=== PATIENT | male | born 1950 | race Caucasian/White ===

== ENCOUNTER 2017-02-05 13:34 | Emergency (ER) | payer MEDICARE, BC ==
[2017-02-05 14:38] VITALS: RESP 18; TEMP 97.6
[2017-02-05 15:51] VITALS: BP 129/80; PULSE 76; O2SAT 92
== END 2017-02-05 15:58 | disposition home or self-care (01) | DRG 556 ==
LOC: ED 13:34
DX: M25.511 Pain in right shoulder (principal); S09.90XA Unspecified injury of head, initial encounter; M54.2 Cervicalgia; W10.9XXA Fall (on) (from) unspecified stairs and steps, initial encounter
CPT/HCPCS: 70450; 72125; 73030; 99284